=== PATIENT | male | born 1970 | race Caucasian/White ===

== ENCOUNTER 2016-12-11 16:31 | Emergency (ER) | payer BC ==
[2016-12-11 16:46] VITALS: BP 127/77; PULSE 90; RESP 14; O2SAT 96
--- NOTE | 2016-12-11 16:48 | UCPHY ---
H & P Patient Type: New Chief Complaint Nursing Narrative: swelling in bladder . no discharge. fatigue and feels chills and feverish. Since last night HPI/ROS: CHIEF COMPLAINT: Bladder fullness HISTORY OF PRESENT ILLNESS: This is a 46-year-old male who has been feeling ill since yesterday evening. He reports fullness in his bladder and some bladder pain when in certain positions. No back pain. He has been having chills today. No vomiting, diarrhea, or constipation. He has loose stools at baseline. He has not seen blood in his stool. He has no history of sexually transmitted disease. He does not have a new sexual partner. He denies penile discharge or lesions. He does not have testicular pain or swelling. He states that he has long-standing difficulty initiating urination. He feels that he is fully emptying his bladder today. REVIEW OF SYSTEMS: A ten point review of systems was performed and is negative with the exception of the items mentioned in the HPI. Source: Patient Exam Limitations: No limitations - Medical/Surgical History Other PMH: 1. Appendectomy. 2. Eustachian tubes. 3. 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 He is . - Physical Exam Exam: General Appearance: Alert. Vital signs reviewed. Eyes: Pupils equal and round, no conjunctival injection, no discharge. Anicteric. ENT, Mouth: Mucous membranes are moist, no oropharyngeal erythema or edema. Neck: No lymphadenopathy, supple. Respiratory: Lungs are clear to auscultation; no wheezes, rales, or rhonchi. Cardiovascular: Regular rate and rhythm; no murmur, rub, or gallop. Gastrointestinal: Abdomen is soft with tenderness to palpation in the left lower quadrant and suprapubic region, no masses or organomegaly, bowel sounds normal. Skin: Warm and dry, no rashes on exposed skin, normal color. Back: Nontender to palpation over the thoracolumbar spine. No CVAT. Extremities: No lower extremity edema, no calf tenderness or swelling. Neurological: Alert and oriented. Moving all four extremities easily and equally. Psychiatric: Normal affect. Constitutional: Initial Vital Signs Temperature (C) 37.5 C 12/11/16 16:41 Heart Rate 90 12/11/16 16:41 Respiratory Rate 14 12/11/16 16:41 Blood Pressure 127/77 H 12/11/16 16:41 O2 Sat (%) 96 12/11/16 16:41 O2 Delivery Mode Room Air Allergies/Adverse Reactions: No Known Allergies Allergy (Unverified 12/11/16 16:46) Home Medications: Medication Instructions Recorded NK [No Known Home Meds] 12/11/16 Medical Decision Making ED Course/Re-evaluation: Urinalysis is negative for infection. Patient was re-examined at 5:30 p.m.. He is no longer experiencing lower abdominal pain. He feels fatigued and that is currently his main complaint. It is my sense that he is early in a gastrointestinal illness. I do not suspect pyelonephritis or UTI or prostatitis at this point. No testicular pain. I do not think this is epididymitis. There is no evidence of an inguinal hernia. Differential Diagnosis: Abdominal pain including but not limited to pyelonephritis, urinary tract infection, epididymitis, inguinal hernia, gastroenteritis, gastritis, and colitis. - Data Points Laboratory Results: 12/11/16 16:57 Urine Color YELLOW Urine Appearance CLEAR Urine pH 5.5 (5.0-7.5) Ur Specific [place] 1.025 (1.002-1.030) Urine Protein NEGATIVE (NEGATIVE) Urine Ketones NEGATIVE (NEGATIVE) Urine Blood NEGATIVE (NEGATIVE) Urine Nitrate NEGATIVE (NEGATIVE) Urine Bilirubin NEGATIVE (NEGATIVE) Urine Urobilinogen 0.2 EU (0.2-1.0) Ur Leukocyte Esterase NEGATIVE (NEGATIVE) Urine Glucose NEGATIVE (NEGATIVE) Departure - Departure Disposition: Home, Routine, Self-Care Clinical Impression: Abdominal pain Condition: Good Instructions: Abdominal Pain (ED) Additional Instructions: Adult Pain & Fever Control: We recommend Acetaminophen (Tylenol) and Ibuprofen (Motrin,Advil) for pain and fever control. When fever is high or pain severe, both drugs can be used at the same time, but at different intervals. Please note the time differences. Your dose is: Acetaminophen 650mg every 4 to 6 hours Ibuprofen 400mg every 8 hours with food OR Note: do not take Acetaminophen with Hydrocodone (Vicodin, Lortab) or Oycodone (Percocet). These medications also contain Acetaminophen. No more than 3000mg of Acetaminophen should be taken in 24 hours (for an adult). As we discussed, I think you are at the beginning of a gastrointestinal illness. You might experience more pain, fever, vomiting, diarrhea--it remains to be seen. Few of severe abdominal pain, vomiting or diarrhea and dehydration, difficulty urinating or pain with urination, any new or concerning symptoms--you should be re-evaluated. I am referring you to Dr. Jeet Zepeda, urology, and Dr. Amarjit Urena, primary care. Referrals: João Zepeda MD [Medical Doctor] - As per Instructions Amarjit Urena DO [Doctor of Osteopathy] - As per Instructions - PQRS PQRS Measurement: Does not apply.
[2016-12-11 17:02] LABS: COLOR YELLOW; LEUKOCYTE ESTERASE,URINE NEGATIVE (NEGATIVE); NITRITE,URINE NEGATIVE (NEGATIVE); PH,URINE 5.5 (5.0-7.5)
[2016-12-11 17:34] VITALS: TEMP 99.2
== END 2016-12-11 18:23 | disposition home or self-care (01) ==
LOC: CED 16:31
DX: R10.9 Unspecified abdominal pain (principal); R53.83 Other fatigue; Z87.442 Personal history of urinary calculi; Z87.891 Personal history of nicotine dependence
CPT/HCPCS: 81003-PO; 99204-PO; G0463-PO